=== PATIENT | female | born 1975 | race Caucasian/White ===

== ENCOUNTER → 2022-06-13 | Outpatient (CLI) | payer BC ==
[~2022-06-13] MED LIST: LIDOCAINE HCL 1% LOCAL INJ 20 ML VIAL ONE
[2022-06-13 12:11] LABS: HEMOGLOBIN 13.5 g/dL (12.0-16.0)
[2022-06-13 12:32] LABS: INR 0.94; PROTHROMBIN TIME 13.4 seconds (11.9-14.5)
[2022-06-13 12:33] LABS: PARTIAL THROMBOPLASTIN TIME 28.1 seconds (23.8-35.5)
[2022-06-13 16:09] LABS: APPEARANCE,CSF CLEAR (CLEAR); COLOR,CSF COLORLESS (COLORLESS); TUBE NUMBER 3; WHITE BLOOD CELL,CSF 0 cells/uL (0-5)
[2022-06-15 13:12] LABS: IGG/ALB RATIO CSF 0.13 (0.00-0.25)
[2022-06-15 14:38] LABS: CSF/SERUM ALBUMIN INDEX 3 (0-8)
[2022-06-16 16:11] LABS: IGG/ALB RATIO CSF 0.13 (0.00-0.25)
[2022-06-16 16:44] LABS: CSF/SERUM ALBUMIN INDEX 3 (0-8)
== END ==
LOC: DX 11:39
PROVIDERS: ATTEND Student in an Organized Health Care Education/Training Program
DX: G35 Multiple sclerosis (principal)
CPT/HCPCS: 36415; 62328; 81025; 82040; 82784; 82945; 83916; 84157; 85014; 85049; 85610; 85651; 85730; 86403; 86592; 86606; 86612; 86618; 86698; 87070; 87116; 87205; 87206; 87327; 88305; 89051; J2001; 88300